=== PATIENT | male | born 1955 | race Two or more races ===

== ENCOUNTER 2020-01-25 13:00 | Outpatient (RCR) | payer BC | END 2020-02-20 | disposition home or self-care (01) | LOC: WCC 13:00 | DX: L97.513 Non-pressure chronic ulcer of other part of right foot with necrosis of muscle (principal); E11.621 Type 2 diabetes mellitus with foot ulcer; Z95.0 Presence of cardiac pacemaker; F41.9 Anxiety disorder, unspecified; E78.00 Pure hypercholesterolemia, unspecified; I73.9 Peripheral vascular disease, unspecified; Z86.73 Personal history of transient ischemic attack (TIA), and cerebral infarction without residual deficits; Z79.899 Other long term (current) drug therapy | CPT/HCPCS: 82962; G0277; G0463; 99204 ==